=== PATIENT | female | born 1980 | race Caucasian/White ===

== ENCOUNTER 2020-01-04 15:09 | Outpatient (CLI) | payer OTHER, SELFPAY ==
--- NOTE | ~2020-01-04 | MM_ITS ---
EXAMINATION: MM screening aurea BI w wendy HISTORY: Screening TECHNIQUE: Craniocaudal and mediolateral oblique 3-D tomosynthesis images were obtained and synthetic 2-D images were generated. CAD analysis was submitted and interpreted. COMPARISON: No prior mammogram is available for comparison at this institution. BREAST PARENCHYMAL COMPOSITION: There are scattered areas of fibroglandular density. FINDINGS: There is no evidence of suspicious mass, calcification, or architectural distortion to sugg est malignancy in either breast. There has been no suspicious interval change. IMPRESSION: 1. No mammographic evidence of malignancy. 2. Recommend routine screening mammography in one year. BI-RADS Category 1: Negative Reviewed, dictated and finalized at location A.
== END 2020-01-04 15:10 | disposition home or self-care (01) ==
LOC: ANHIMG 15:12
PROVIDERS: PCP Nurse Practitioner Family; Visit Provider Nurse Practitioner Family
DX: Z12.31 Encounter for screening mammogram for malignant neoplasm of breast (principal)
CPT/HCPCS: 77063; 77067

== ENCOUNTER 2021-08-21 15:16 | Outpatient (CLI) | payer OTHER, SELFPAY ==
[2021-08-21 15:49] LABS: Basophils Percent Auto 0.3 % (0.2-1.2); Eosinophils Absolute Auto 0.1 K/mm3 (0-0.3); Eosinophils Percent Auto 1.1 % (0-4.4); Hematocrit 38.5 % (37.0-47.0); Hemoglobin 12.2 g/dL (12.0-15.0); Immature Granulocyte Absolute 0.04 K/mm3 (0.00-0.031); Immature Granulocyte Percent A 0.3 % (0-0.5); Lymphocytes Absolute Auto 1.82 K/mm3 (0.9-3.2); Lymphocytes Percent Auto 15.6 % (18.3-44.2); Mean Corpuscular HGB Conc 31.7 g/dl (32-36); Mean Corpuscular Hemoglobin 27.2 pg (26-34); Mean Corpuscular Volume 85.7 fl (80-100); Mean Platelet Volume 9.7 fl (7.4-10.4); Monocytes Absolute Auto 0.5 K/mm3 (0.1-0.6); Monocytes Percent Auto 4.4 % (2.6-8.5); Neutrophils Absolute Auto 9.1 K/mm3 (1.3-6.7); Neutrophils Percent Auto 78.3 % (45.5-73.1); Platelet Count Result 304 k/mm3 (150-375); Red Blood Count 4.49 M/mm3 (4.2-5.4); White Blood Count 11.7 K/mm3 (4.5-10.0)
[2021-08-21 16:39] LABS: HIV 1/2 Ab P24 Ag Result Negative (Negative)
[2021-08-21 17:03] LABS: Hepatitis B Surface Antigen Negative (Negative); Rubella IgG Antibody 17.9 IU/ML
[2021-08-21 18:02] LABS: Rapid Plasma Reagin Non-Reactive (NonReactive)
[2021-08-23 08:05] LABS: CMV IgG Antibody >10.00 U/mL (<0.60)
[2021-08-29 17:12] LABS: SMA 2.0 RISK VARIANT NOT DETECTED
[2021-08-29 20:13] LABS: CF Result NEGATIVE (NEGATIVE)
[2021-09-01 15:47] LABS: SMA Results Received Yes
== END 2021-08-21 15:17 | disposition home or self-care (01) ==
PROVIDERS: PCP Nurse Practitioner Family; Visit Provider Obstetrics & Gynecology
DX: N94.89 Other specified conditions associated with female genital organs and menstrual cycle (principal)
CPT/HCPCS: 36415; 81220; 81329; 84702; 85025; 86592; 86644; 86703; 86747; 86762; 86787; 86850; 86900; 86901; 87086; 87088; 87340; G0432

== ENCOUNTER 2022-03-24 06:09 | Inpatient (IN) | payer OTHER, SELFPAY ==
[2022-03-24] VITALS (20 sets, daily range): BP systolic 134–166; BP diastolic 72–85; PULSE 56–87; RESP 16–18; TEMP 36.5–36.6; O2SAT 96–100; BMI 36.3
[2022-03-24] MEDS: LACTATED RINGERS 1,000 ML 125 ML IV CONT (06:23)
[2022-03-24] MEDS: OXYTOCIN 30 UNITS/NS 500 ML 30 UNITS/500 ML BAG 999 UNITS IV CONT (06:34)
[2022-03-24 06:49] LABS: Glucose Point of Care 111 mg/dl (65-105)
[2022-03-24 06:52] LABS: Basophils Percent Auto 0.3 % (0.2-1.2); Eosinophils Absolute Auto 0.1 K/mm3 (0-0.3); Eosinophils Percent Auto 0.6 % (0-4.4); Hematocrit 34.2 % (37.0-47.0); Immature Granulocyte Absolute 0.07 K/mm3 (0.00-0.031); Immature Granulocyte Percent A 0.6 % (0-0.5); Lymphocytes Absolute Auto 2.13 K/mm3 (0.9-3.2); Lymphocytes Percent Auto 18.3 % (18.3-44.2); Mean Corpuscular HGB Conc 32.2 g/dl (32-36); Mean Corpuscular Hemoglobin 27.2 pg (26-34); Mean Corpuscular Volume 84.7 fl (80-100); Mean Platelet Volume 9.9 fl (7.4-10.4); Monocytes Absolute Auto 0.7 K/mm3 (0.1-0.6); Monocytes Percent Auto 5.9 % (2.6-8.5); Neutrophils Absolute Auto 8.6 K/mm3 (1.3-6.7); Neutrophils Percent Auto 74.3 % (45.5-73.1); Platelet Count Result 293 k/mm3 (150-375); Red Blood Count 4.04 M/mm3 (4.2-5.4); Red Cell Distribution Width 15.1 % (11.5-14.5); White Blood Count 11.6 K/mm3 (4.5-10.0)
--- NOTE | 2022-03-24 07:08 | PM.IMHP ---
H&P: HPI History of Present Illness Date/Time: 03/24/22 07:08 Chief Complaint: Intrauterine at term Narrative: 41 yo at 38w2d who presents in labor. Pt is complicated by diabetes on insulin and AMA. Review of Systems Cardiovascular: Cardiovascular: Denies chest pain, Denies leg edema, Denies palpitations, Denies dyspnea and Denies dyspnea on exertion Respiratory: Respiratory: Denies cough, Denies dyspnea and Denies dyspnea on exertion Gastrointestinal: Gastrointestinal: Denies abdominal pain, Denies constipation, Denies diarrhea, Denies nausea and Denies vomiting Genitourinary: Genitourinary: Denies hematuria, Denies urinary frequency, Denies dysuria, Denies pelvic pain, Denies urinary incontinence and Denies vaginal discharge Neurologic: Reports system reviewed and no additional complaints, except as documented Psychiatric: Psychiatric: Reports no additional psychiatric complaints Endocrine: Endocrine: Denies palpitations PMFSH Past Medical History Medical History (Updated 03/24/22 @ 07:10 by Raúl Jules MD) Anemia Anxiety Depression History of frequent headaches Suppression of menstruation Family History Family History Mother Cerebrovascular accident Hypertension Diabetes mellitus Social History Social History (Updated 08/09/21 @ 10:05 by DAVE Link) Smoking status: Never smoker Alcohol intake: never Substance use: current Substance use type: marijuana Other substance usage details: daily Additional living arrangements comments: spouse Additional occupation/education comments: stay at home mom Gender identity (if verbalized by the patient): Female Sexual Orientation (if Verbalized by the Patient): Straight or Heterosexual Meds Home Medications and Allergies Home Medications Medication Instructions Recorded Confirmed Type escitalopram oxalate 20 mg tablet 20 mg PO DAILY 08/09/21 03/19/22 History vitamins-iron fumarate 65 1 tablet PO DAILY 08/09/21 03/19/22 History mg iron-folic acid 1 mg tablet aspirin 81 mg tablet,delayed 81 mg PO BID 10/24/21 03/19/22 History release (Adult Low Dose Aspirin) insulin detemir U-100 100 unit/mL 50 unit subcut QHS 02/26/22 03/19/22 History (3 mL) subcutaneous pen buspirone 10 mg tablet 10 mg PO BID #90 tabs 03/19/22 03/19/22 Rx Allergies Allergy/AdvReac Type Severity Reaction Status Date / Time No Known Allergies Allergy Mild Verified 03/19/22 15:34 Vital Signs Vital Signs - 24 hr 03/24/22 06:29 03/24/22 06:45 03/24/22 07:01 Pulse Rate 82 76 Blood Pressure 134/74 139/76 Pulse Oximetry 100 Exam Const: General: no acute distress Eyes: EOM: EOMs intact bilaterally Neck: Neck: supple Thyroid: thyroid normal Chest: Breast/axilla inspection: normal inspection of the breasts Breast/axilla palpation: normal palpation of the breasts, normal palpation of the axillae and no axillary lymphadenopathy Resp: Effort & Inspection: normal respiratory effort Auscultation: clear to auscultation bilaterally Cardio: Rate: regular rate Rhythm: regular rhythm GI: Inspection: non-distended and other (Gravid) GI Palp: Yes Soft to palpation, No Tenderness to palpation present (GI) and No Guarding due to palpation present (GI) Auscultation: normal bowel sounds : Speculum Exam - Vagina: No vaginal bleeding OB/external & speculum: external exam normal; No vaginal bleeding Skin: General skin exam: normal color and no rashes or lesions noted Neuro: Cognition (Neuro): normal cognition Speech: normal speech Extrem: General: normal to inspection Psych: Mental Status: mental status grossly normal Affect: normal affect H&P: Results Labs Labs: Short CBC 03/24/22 Range/Units 06:37 WBC 11.6 H (4.5-10.0) K/mm3 Hgb 11.0 L (12.0-15.0) g/dL Hct 34.2 L (37.0-47.0) % Plt Count 293 (150-375) k
--- NOTE | 2022-03-24 07:10 | P.PCNOB_ITS ---
OB - Delivery Note Procedure Procedure: Upon entering the room, the pt had already had a precipitous delivery with the nurse. The was in the warmer and had good tone, color, and was crying. The placenta had spontaneously delivered. The placenta was inspected and noted to be intact. The perineum was inspected and there was a 1st degree perineal laceration. The laceration was repaired with 3-0 vicryl in the usual fashion. The uterus was firm and good hemostasis was noted. The patient and fetus were stable in the delivery room. Induction method: None Delivery monitor: External FHT Route of delivery: Episiotomy description: None Laceration Description: Perineal - 1st Degree Delivery repair: vicryl Specimen: No Quantitative Blood Loss (ml): 200 Anesthesia type: None Disposition: Floor () Complications: No immediate complications [place] Baby Date of : 03/24/22 Time of : 06:31 Weeks of gestation at delivery: 38 gender: Male Weight (pounds): 6 Weight (ounces): 12 Placenta delivery description: Spontaneous score one minute: 8 score five minutes: 9 AMG Delivery Billing Delivery Delivery: Delivery Charge
--- NOTE | 2022-03-24 07:10 | LDADM ---
This patient, Edith Barroso, was admitted to Labor/Delivery/Recovery 107 on 03/24/22 at 06:09. Plans for labor, pain management and were discussed with patient. Patient/family oriented to hospital policies and general routines including ID bracelet, bed and alarms, visiting hours, pain management, procedures, bathroom and other care routines, personal items, smoking policy, room service/diet and guest tray routines, infant security routines, and visiting hours. Patient/Family are encouraged to report perceived risks to care and to ask questions if they do not understand what they are told or what they should do. See OBIX for further documentation.
[2022-03-24] MEDS: WITCH HAZEL 40 PADS 1 PAD TOPICAL (08:31)
[2022-03-24] MEDS: BENZOCAINE 20% AER SPR (*SP) 56 GM CAN 1 SPRAY TOPICAL (08:31)
[2022-03-24] MEDS: IBUPROFEN 600 MG TABLET PO ×2 (08:47→23:26)
[2022-03-24] MEDS: MULTIVIT/MIN/PREN/FOL AC/IRON TABLET 1 TAB PO (09:40)
[2022-03-24 11:11] LABS: Glucose Point of Care 103 mg/dl (65-105)
[2022-03-24] MEDS: LANOLIN (LANSINOH) 7.5 GM CREAM 1 APPLIC TOPICAL (17:28)
[2022-03-24 19:27] LABS: Glucose Point of Care 99 mg/dl (65-105)
[2022-03-25 04:00] VITALS: BP 123/83; PULSE 64; RESP 18; TEMP 36.6; O2SAT 99
[2022-03-25 06:05] LABS: Hematocrit 31.1 % (37.0-47.0); Hemoglobin 9.8 g/dL (12.0-15.0)
--- NOTE | 2022-03-25 07:16 | PM.OBDSVD ---
DS: Admitting Diagnosis Discharge Date 03/25/22 Admitting Diagnosis intrauterine at term diabetes melitus DS: Discharge Diagnosis Discharge Diagnosis Plan same OB - DS: Summary OB Procedures : None OB Procedures Intrapartum: Spontaneous Vag Delivery OB Procedures: : None Status at Discharge Functional status at discharge: independent ambulation Overall status at discharge: patient is back to baseline Time Spent with Patient Time attestation: Total time spent providing and/or coordinating discharge services: Time spent: Less than 30 minutes Exam Const: General: comfortable and no acute distress Resp: Effort & Inspection: normal respiratory effort Auscultation: clear to auscultation bilaterally Cardio: Rate: regular rate GI: GI Palp: Yes Soft to palpation Auscultation: normal bowel sounds Other: Fundus firm below umbilicus Psych: Appearance: grossly normal Mental Status: mental status grossly normal Affect: normal affect DS: Data Data Completed and Pending Labs on day of discharge: Labs from last 24 hours 03/25/22 03/24/22 03/24/22 04:23 19:24 11:09 Hgb 9.8 L Hct 31.1 L POC Capillary Glucose 99 103 Blood Type Antibody Screen 03/24/22 06:37 Hgb Hct POC Capillary Glucose Blood Type A Positive Antibody Screen Negative Discharge Plan Discharge Attending physician on discharge: Raúl Jules Discharging Clinician: Raúl Jules Patient Disposition: Home, Self-Care Activity: as tolerated and pelvic rest Diet: diabetic Patient Instructions: Antibiotic Form, Vaginal Delivery (DC) Stand Alone Forms: General Discharge Information Follow-up/Referrals: Ar Patel MD [Physician] - Discharge Medications: New ibuprofen 600 mg Tablet 600 mg PO Q6H PRN (Reason: Cramping) Qty: 30 0RF polysaccharide iron complex 150 mg iron Capsule 150 mg PO BIDWM Qty: 60 0RF Continued escitalopram oxalate 20 mg tablet 20 mg PO DAILY vit-iron fum-folic ac 65 mg iron- 1 mg tablet 1 tablet PO DAILY buspirone 10 mg tablet 10 mg PO BID Qty: 90 3RF aspirin [Adult Low Dose Aspirin] 81 mg tablet,delayed release (DR/EC) 81 mg PO BID Discontinued insulin detemir U-100 100 unit/mL (3 mL) insulin pen 48 unit subcut QHS Date of admission: 03/24/22 06:09 Primary Care Provider: AnthonyMisty Admitting Provider: Ar Patel Attending physician on admission: Ar Patel Condition: Stable
[2022-03-25] MEDS: MULTIVIT/MIN/PREN/FOL AC/IRON TABLET 1 TAB PO (08:07)
[2022-03-25] MEDS: POLYSACCHARIDE IRON COMPLEX 150 MG CAPSULE PO (08:07)
[2022-03-25 08:09] VITALS: BP 130/78; PULSE 69; RESP 16; TEMP 36.7; O2SAT 98
--- NOTE | 2022-03-25 11:15 | PC.NURSE ---
Patient viewed the discharge video Mother & Baby Care, The First Two Weeks . Patient was given the opportunity and encouraged to ask questions. Patient verbalized understanding of information shared and has been given the mother/baby guide for home reference.
[2022-03-26 07:28] LABS: Rapid Plasma Reagin Non-Reactive (NonReactive)
== END 2022-03-25 13:36 | disposition home or self-care (01) | DRG 560 ==
LOC: ANHOB2 03-25 07:58 → ANHLDR 03-27 10:47 → ANHOB2 03-27 10:47
PROVIDERS: Obstetrics & Gynecology; Admitting Provider Student in an Organized Health Care Education/Training Program; PCP Nurse Practitioner Family; Visit Provider Student in an Organized Health Care Education/Training Program
DX: O62.3 Precipitate labor (principal); O24.12 Pre-existing type 2 diabetes mellitus, in childbirth; Z37.0 Single live birth; Z3A.38 38 weeks gestation of pregnancy; O69.82X0 Labor and delivery complicated by other cord entanglement, without compression, not applicable or unspecified; O70.0 First degree perineal laceration during delivery
CPT/HCPCS: 36415; 82948; 85014; 85018; 85025; 86592; 86850; 86900; 86901; A9270; J2590; J7120

== ENCOUNTER 2022-04-04 14:25 | Outpatient (CLI) | payer OTHER, SELFPAY ==
[2022-04-04] VITALS (10 sets, daily range): BP systolic 137–167; BP diastolic 67–104; PULSE 50–62; BMI 33.0
[2022-04-04 15:10] LABS: Basophils Percent Auto 0.7 % (0.2-1.2); Eosinophils Absolute Auto 0.1 K/mm3 (0-0.3); Eosinophils Percent Auto 1.8 % (0-4.4); Hematocrit 34.7 % (37.0-47.0); Hemoglobin 11.1 g/dL (12.0-15.0); Immature Granulocyte Absolute 0.02 K/mm3 (0.00-0.031); Immature Granulocyte Percent A 0.3 % (0-0.5); Lymphocytes Absolute Auto 1.22 K/mm3 (0.9-3.2); Lymphocytes Percent Auto 19.9 % (18.3-44.2); Mean Corpuscular Hemoglobin 27.1 pg (26-34); Mean Corpuscular Volume 84.6 fl (80-100); Mean Platelet Volume 9.6 fl (7.4-10.4); Monocytes Absolute Auto 0.3 K/mm3 (0.1-0.6); Monocytes Percent Auto 5.4 % (2.6-8.5); Neutrophils Absolute Auto 4.4 K/mm3 (1.3-6.7); Neutrophils Percent Auto 71.9 % (45.5-73.1); Platelet Count Result 284 k/mm3 (150-375); Red Cell Distribution Width 15.2 % (11.5-14.5); White Blood Count 6.1 K/mm3 (4.5-10.0)
[2022-04-04 15:22] LABS: Alanine Aminotransferase 52 U/L (6-35); Albumin Level 3.9 g/dL (3.5-5.1); Alkaline Phosphatase 116 U/L (38-126); Anion Gap 8 mmol/L (8-16); Aspartate Amino Transferase 45 U/L (14-36); Bilirubin,Total 0.5 mg/dL (0.2-1.3); Blood Urea Nitrogen 17 mg/dL (7-17); Calcium 8.4 mg/dL (8.4-10.2); Carbon Dioxide 23 mmol/L (22-30); Chloride 108 mmol/L (98-107); Estimated Glomerular Filt Rate > 60; Glucose 81 mg/dL (65-110); Potassium 4.2 mmol/L (3.4-5.0); Sodium 139 mmol/L (137-145); Uric Acid 7.3 mg/dL (2.5-7.5)
[2022-04-04] MEDS: ACETAMINOPHEN 500 MG TABLET 1000 MG PO (15:36)
--- NOTE | 2022-04-04 15:40 | PC.NURSE ---
Dr. Jules called stating he has seen BP's and lab results. Discussed last BP of 137/104 that pt was moving; repeat just now is 167/77. Pt has a headache she rates as a 2, no visual disturbance, no epigastric/RUQ pain. No edema and DTR's 2+ and no clonus. MD asking if pt can come back tomorrow to repeat labs. Pt states she can. Orders received for Procardia XL and discharge with pt to return tomorrow for repeat labs.
--- NOTE | 2022-04-04 15:42 | PM.OBTRLD ---
OB - Triage/Final Diagnosis Visit Information Date of evaluation: 04/04/22 Reason for evaluation: other ( hypertension ) Comments/Additional reasons for admission: I have assessed the risk for this patient, Edith Painting Silver Barroso, and determined that she would benefit from observation care. Evaluation Laboratory results: Laboratory Tests 04/04/22 04/04/22 15:00 15:00 WBC 6.1 RBC 4.10 L Hgb 11.1 L Hct 34.7 L MCV 84.6 MCH 27.1 MCHC 32.0 RDW 15.2 H Plt Count 284 MPV 9.6 Immature Gran % (Auto) 0.3 Neut % (Auto) 71.9 Lymph % (Auto) 19.9 [place] % (Auto) 5.4 Eos % (Auto) 1.8 Baso % (Auto) 0.7 Lymph # (Auto) 1.22 [place] # (Auto) 0.3 Eos # (Auto) 0.1 Baso # (Auto) 0.0 Abs Immat Gran (auto) 0.02 Absolute Neuts (auto) 4.4 Absolute Nucleated RBC 0.0 Nucleated RBC % 0.0 Sodium 139 Potassium 4.2 Chloride 108 H Carbon Dioxide 23 Anion Gap 8 BUN 17 Creatinine 0.90 Estim Creat Clear Calc Not Reportable Estimated GFR > 60 Glucose 81 Uric Acid 7.3 Calcium 8.4 Total Bilirubin 0.5 AST 45 H ALT 52 H Alkaline Phosphatase 116 Total Protein 7.0 Albumin 3.9 Vital signs: Vital Signs - 24 hr 04/04/22 14:58 04/04/22 14:58 04/04/22 15:01 Pulse Rate 58 L 58 L 62 Blood Pressure 154/67 H 143/67 H Blood Pressure [Left Arm] 154/67 H 04/04/22 15:16 04/04/22 15:31 04/04/22 15:40 Pulse Rate 51 L 58 L 55 L Blood Pressure 146/87 H 137/104 H 167/77 H Blood Pressure [Left Arm]
[2022-04-04] MEDS: NIFEdipine 30 MG TAB.ER.24 PO (15:50)
== END 2022-04-04 16:52 | disposition home or self-care (01) ==
LOC: ANHOBOP 14:33 → ANHOBPP 14:36
PROVIDERS: PCP Nurse Practitioner Family; Visit Provider Student in an Organized Health Care Education/Training Program
DX: O16.5 Unspecified maternal hypertension, complicating the puerperium (principal)
CPT/HCPCS: 36415; 80053; 84550; 85025; 99199; A9270

== ENCOUNTER 2022-04-05 14:03 | Observation (INO) | payer OTHER, SELFPAY ==
[2022-04-05] VITALS (54 sets, daily range): BP systolic 135–199; BP diastolic 66–115; PULSE 55–85; RESP 16–18; TEMP 36.4–36.7; O2SAT 93–100
[2022-04-05 14:49] LABS: Basophils Absolute Auto 0.1 K/mm3 (0.0-0.1); Basophils Percent Auto 1.1 % (0.2-1.2); Eosinophils Absolute Auto 0.1 K/mm3 (0-0.3); Eosinophils Percent Auto 2.4 % (0-4.4); Hematocrit 38.2 % (37.0-47.0); Hemoglobin 12.1 g/dL (12.0-15.0); Immature Granulocyte Absolute 0.02 K/mm3 (0.00-0.031); Immature Granulocyte Percent A 0.4 % (0-0.5); Lymphocytes Absolute Auto 1.25 K/mm3 (0.9-3.2); Lymphocytes Percent Auto 22.7 % (18.3-44.2); Mean Corpuscular HGB Conc 31.7 g/dl (32-36); Mean Corpuscular Hemoglobin 26.8 pg (26-34); Mean Corpuscular Volume 84.5 fl (80-100); Mean Platelet Volume 9.4 fl (7.4-10.4); Monocytes Absolute Auto 0.3 K/mm3 (0.1-0.6); Monocytes Percent Auto 5.6 % (2.6-8.5); Neutrophils Absolute Auto 3.7 K/mm3 (1.3-6.7); Neutrophils Percent Auto 67.8 % (45.5-73.1); Platelet Count Result 299 k/mm3 (150-375); Red Blood Count 4.52 M/mm3 (4.2-5.4); White Blood Count 5.5 K/mm3 (4.5-10.0)
[2022-04-05 15:46] LABS: Alanine Aminotransferase 58 U/L (6-35); Alkaline Phosphatase 120 U/L (38-126); Anion Gap 7 mmol/L (8-16); Aspartate Amino Transferase 44 U/L (14-36); Bilirubin,Total 0.4 mg/dL (0.2-1.3); Blood Urea Nitrogen 13 mg/dL (7-17); Calcium 8.7 mg/dL (8.4-10.2); Carbon Dioxide 22 mmol/L (22-30); Chloride 109 mmol/L (98-107); Estimated Glomerular Filt Rate > 60; Glucose 87 mg/dL (65-110); Potassium 3.8 mmol/L (3.4-5.0); Sodium 138 mmol/L (137-145); Uric Acid 6.2 mg/dL (2.5-7.5)
--- NOTE | 2022-04-05 16:02 | PC.NURSE ---
Called Dr. Jules and OMAR
--- NOTE | 2022-04-05 16:18 | PC.NURSE ---
Report given to Dr. Jules via phone. He is on the way to hospital to assess patient.
--- NOTE | 2022-04-05 16:39 | PC.NURSE ---
Jorge A at bedside
--- NOTE | 2022-04-05 16:50 | PC.NURSE ---
Dr. Jules gave orders to start a 4mg magnesium bolus then do a 2 mg magnesium infusion. Orders for VS Q4HR and PI labs in the morning.
--- NOTE | 2022-04-05 17:06 | PM.IMHP ---
H&P: HPI History of Present Illness Date/Time: 04/05/22 17:06 Chief Complaint: elevated blood pressure Narrative: 41 yo who presents 12 days PP from . Her course has been complicated by elevated BP. Pt presented yesterday with complaint of headache and elevated BP at home. Pt was found to have mild range BP. Her liver enzymes were elevated. Pt was started on procardia and brought back for repeat labs today. Pt continues to complain of BLAKE. She reports severe range BP at home. Her liver enzymes remained elevated. Pt was noted to have severe range BP on evaluation today. Pt reports increased swelling and severe range BP after her last delivery as well. Review of Systems Review of Systems: All systems reviewed & are unremarkable except as noted in HPI and below Cardiovascular: Cardiovascular: Denies chest pain, Denies leg edema, Denies palpitations, Denies dyspnea and Denies dyspnea on exertion Respiratory: Respiratory: Denies cough, Denies dyspnea and Denies dyspnea on exertion Gastrointestinal: Gastrointestinal: Denies abdominal pain, Denies constipation, Denies diarrhea, Denies nausea and Denies vomiting Genitourinary: Genitourinary: Denies hematuria, Denies urinary frequency, Denies dysuria, Denies pelvic pain, Denies urinary incontinence and Denies vaginal discharge Neurologic: Reports system reviewed and no additional complaints, except as documented Psychiatric: Psychiatric: Reports no additional psychiatric complaints Endocrine: Endocrine: Denies palpitations PMFSH Past Medical History Medical History (Updated 04/05/22 @ 17:11 by Raúl Jules MD) Anemia Anxiety Depression History of frequent headaches Suppression of menstruation Family History Family History Mother Cerebrovascular accident Hypertension Diabetes mellitus Social History Social History (Updated 08/09/21 @ 10:05 by DAVE Link) Smoking status: Never smoker Second hand tobacco smoke exposure: No Alcohol intake: never Substance use: former Substance use type: marijuana Other substance usage details: daily Last use: 2-3 months ago Has the Lack of Transportation Kept You From Medical Appointments or From Getting Medications?: No Within the Past 12 Months, Were You Worried Whether Your Food Would Run Out Before You Got Money to Buy More?: Never True What is Your Housing Situation Today?: I Have Housing Are You Worried That in the Next 2 Months, You May Not Have Your Own Housing to Live In?: No Do You Have Trouble Paying Your Heating Or Electricity Bill?: No Do You Have Trouble Paying For Medicines?: No Are You Currently Unemployed and Looking for Work?: No Highest Level of Education Completed: Grade School Do You Have Trouble With Childcare or the Care of a Family Member?: No Additional living arrangements comments: spouse Additional occupation/education comments: stay at home mom Gender identity (if verbalized by the patient): Female Sexual Orientation (if Verbalized by the Patient): Straight or Heterosexual Spiritual care concerns: No Meds Home Medications and Allergies Home Medications Medication Instructions Recorded Confirmed Type escitalopram oxalate 20 mg tablet 20 mg PO DAILY 08/09/21 04/05/22 History vitamins-iron fumarate 65 1 tablet PO DAILY 08/09/21 04/05/22 History mg iron-folic acid 1 mg tablet aspirin 81 mg tablet,delayed 81 mg PO BID 10/24/21 04/05/22 History release (Adult Low Dose Aspirin) buspirone 10 mg tablet 10 mg PO BID #90 tabs 03/19/22 04/05/22 Rx ibuprofen 600 mg tablet 600 mg PO Q6H PRN Cramping #30 tabs 03/25/22 04/05/22 Rx polysaccharide iron complex 150 mg 150 mg PO BIDWM #60 caps 03/25/22 04/05/22 Rx iron capsule metformin 500 mg tablet,extended 500 mg PO HS 04/04/22 04/05/22 History release 24 hr nifedipine 30 mg tablet,extended 30 mg PO DAILY #3
--- NOTE | 2022-04-05 17:25 | OBADM ---
This patient, Edith Barroso, admitted to the OB room [facility] for observation. Patient/family oriented to hospital policies and general routines including ID bracelet, bed and alarms, visiting hours, pain management, procedures, bathroom and other care routines, personal items, smoking policy, room service/diet, and visiting hours. Patient/Family are encouraged to report perceived risks to care and to ask questions if they do not understand what they are told or what they should do.
[2022-04-05] MEDS: MAGNESIUM SULF 4 GM/WATER100ML 4 GM/100 ML BAG IVPB (17:28)
[2022-04-05] MEDS: LACTATED RINGERS 1,000 ML 75 ML IV CONT (17:28)
--- NOTE | 2022-04-05 17:56 | PC.NURSE ---
Dr. Jules called. Orders to do Intake and outtake as well.
[2022-04-05] MEDS: MAGNESIUM SULF 20GM/WATER500ML 500 ML 50 MG IV CONT (17:59)
--- NOTE | 2022-04-05 18:31 | PC.NURSE ---
report given to JADON Lu
[2022-04-05] MEDS: NIFEdipine 30 MG TAB.ER.24 PO (21:00)
[2022-04-06] VITALS (120 sets, daily range): BP systolic 125–137; BP diastolic 64–83; PULSE 54–109; RESP 15–16; TEMP 36.4–36.7; O2SAT 90–100; BMI 33.2
[2022-04-06] MEDS: MAGNESIUM SULF 20GM/WATER500ML 500 ML 50 MG IV CONT (04:13)
[2022-04-06] MEDS: ACETAMINOPHEN 325 MG TABLET 650 MG PO ×2 (04:23→17:14)
[2022-04-06 05:48] LABS: Hematocrit 43.3 % (37.0-47.0); Hemoglobin 13.8 g/dL (12.0-15.0); Mean Corpuscular HGB Conc 31.9 g/dl (32-36); Mean Corpuscular Hemoglobin 26.7 pg (26-34); Mean Corpuscular Volume 83.9 fl (80-100); Mean Platelet Volume 9.1 fl (7.4-10.4); Platelet Count Result 359 k/mm3 (150-375); Red Blood Count 5.16 M/mm3 (4.2-5.4); White Blood Count 6.9 K/mm3 (4.5-10.0)
[2022-04-06 05:59] LABS: Alanine Aminotransferase 70 U/L (6-35); Albumin Level 4.5 g/dL (3.5-5.1); Alkaline Phosphatase 140 U/L (38-126); Anion Gap 16 mmol/L (8-16); Aspartate Amino Transferase 52 U/L (14-36); Bilirubin,Total 0.4 mg/dL (0.2-1.3); Blood Urea Nitrogen 10 mg/dL (7-17); Calcium 6.7 mg/dL (8.4-10.2); Carbon Dioxide 26 mmol/L (22-30); Chloride 99 mmol/L (98-107); Estimated CRCL calculation 82 ml/min; Estimated Glomerular Filt Rate > 60; Glucose 112 mg/dL (65-110); Potassium 3.4 mmol/L (3.4-5.0); Sodium 141 mmol/L (137-145); Uric Acid 6.2 mg/dL (2.5-7.5)
[2022-04-06] MEDS: LACTATED RINGERS 1,000 ML 75 ML IV CONT (07:02)
--- NOTE | 2022-04-06 07:28 | PC.NURSE ---
Dr. Jules at bedside discussing plan of care with patient. Magnesium drip to be discontinued after current bag is finished. Monitor patient throughout the day for PP preeclampsia sx.
[2022-04-06] MEDS: NIFEdipine 30 MG TAB.ER.24 PO ×2 (08:59→16:48)
--- NOTE | 2022-04-06 09:05 | PC.NURSE ---
Magnesium sulfate and LR IV drips stopped.
--- NOTE | 2022-04-06 10:02 | PC.NURSE ---
Patient is able to ambulate to restroom independently.
--- NOTE | 2022-04-06 10:45 | PM.DS ---
DS: Admitting Diagnosis Discharge Date 04/06/22 Admitting Diagnosis preeclampsia DS: Discharge Diagnosis Discharge Diagnosis (1) Preeclampsia in period: Code(s): O14.95 - Unspecified pre-eclampsia, complicating the puerperium Status: Acute DS: Summary Hospital Course Reason for hospitalization: preeclampsia Hospital Course: 41 yo who presented with persistently elevated BP and headaches. Pt was started on antihypertensive 11 days PP from . Pt was noted to have elevated liver enzymes on labwork. Pt presented for follow up labs and was noted to have severe range BP despite starting antihypertensives. Pt was admitted for magnesium infusion and BP monitoring. Pt's antihypertensive dosing was increased. Pt received magnesium overnight. pt states her BLAKE has resolved. BP remained normotensive overnight after magnesium and increasing antihypertensives. Pt is asymptomatic on hospital day #1. Status at Discharge Functional status at discharge: independent ambulation Overall status at discharge: patient is progressing back to baseline Time Spent with Patient Time attestation: Total time spent providing and/or coordinating discharge services: Time spent: Less than 30 minutes Exam Const: General: cooperative, comfortable and no acute distress Eyes: General: appearance normal, both eyes and all related structures Resp: Effort & Inspection: normal respiratory effort and able to speak in complete sentences Auscultation: clear to auscultation bilaterally Cardio: Rate: regular rate Rhythm: regular rhythm GI: Inspection: normal to inspection GI Palp: No abdominal tenderness and Yes Soft to palpation DS: Data Data Completed and Pending Labs on day of discharge: Labs from last 24 hours 04/06/22 04/06/22 04/05/22 05:29 05:29 14:40 WBC 6.9 RBC 5.16 Hgb 13.8 Hct 43.3 MCV 83.9 MCH 26.7 MCHC 31.9 L RDW 15.0 H Plt Count 359 MPV 9.1 Immature Gran % (Auto) Neut % (Auto) Lymph % (Auto) [place] % (Auto) Eos % (Auto) Baso % (Auto) Lymph # (Auto) [place] # (Auto) Eos # (Auto) Baso # (Auto) Abs Immat Gran (auto) Absolute Neuts (auto) Absolute Nucleated RBC Nucleated RBC % Sodium 141 138 Potassium 3.4 3.8 Chloride 99 109 H Carbon Dioxide 26 22 Anion Gap 16 7 L BUN 10 13 Creatinine 0.80 0.80 Estim Creat Clear Calc 82 Not Reportable Estimated GFR > 60 > 60 Glucose 112 H 87 Uric Acid 6.2 6.2 Calcium 6.7 L 8.7 Total Bilirubin 0.4 0.4 AST 52 H 44 H ALT 70 H 58 H Alkaline Phosphatase 140 H 120 Total Protein 8.0 7.0 Albumin 4.5 4.0 04/05/22 14:40 WBC 5.5 RBC 4.52 Hgb 12.1 Hct 38.2 MCV 84.5 MCH 26.8 MCHC 31.7 L RDW 15.0 H Plt Count 299 MPV 9.4 Immature Gran % (Auto) 0.4 Neut % (Auto) 67.8 Lymph % (Auto) 22.7 [place] % (Auto) 5.6 Eos % (Auto) 2.4 Baso % (Auto) 1.1 Lymph # (Auto) 1.25 [place] # (Auto) 0.3 Eos # (Auto) 0.1 Baso # (Auto) 0.1 Abs Immat Gran (auto) 0.02 Absolute Neuts (auto) 3.7 Absolute Nucleated RBC 0.0 Nucleated RBC % 0.0 Sodium Potassium Chloride Carbon Dioxide Anion Gap BUN Creatinine Estim Creat Clear Calc Estimated GFR Glucose Uric Acid Calcium Total Bilirubin AST ALT Alkaline Phosphatase Total Protein Albumin Discharge Plan Discharge Attending physician on discharge: Raúl Jules Discharging Clinician: Raúl Jules Patient Disposition: Home, Self-Care Activity: as tolerated and pelvic rest Diet: regular Patient Instructions: Antibiotic Form, Preeclampsia and Eclampsia After Delivery (GEN) Stand Alone Forms: General Discharge Information Follow-up/Referrals: Raúl Jules MD [Physician] - 1 Week Discharge Medications: New nifedipine [Procardia XL] 30 mg Tablet Extended Release 24hr 30 mg PO BID Qty: 60 0RF Continue
--- NOTE | 2022-04-06 11:43 | PC.NURSE ---
Spoke with Dr. Jules regarding patient's plan of care. Current plan is to discharge patient at 1700 so long as patient does not have any new complaints.
== END 2022-04-06 17:27 | disposition home or self-care (01) ==
LOC: ANHOBPP 16:53 → ANHLDR 19:48
PROVIDERS: Admitting Provider Student in an Organized Health Care Education/Training Program; PCP Nurse Practitioner Family; Visit Provider Student in an Organized Health Care Education/Training Program
DX: O14.15 Severe pre-eclampsia, complicating the puerperium (principal); D64.9 Anemia, unspecified; F41.9 Anxiety disorder, unspecified; F32.A Depression, unspecified; Z79.82 Long term (current) use of aspirin; Z79.1 Long term (current) use of non-steroidal anti-inflammatories (NSAID); Z79.84 Long term (current) use of oral hypoglycemic drugs; Z79.899 Other long term (current) drug therapy
CPT/HCPCS: 36415; 80053; 84550; 85025; 85027; 96365; 96366; A9270; G0378; G0379; J3475; J7120

== ENCOUNTER 2025-04-19 11:10 | Outpatient (CLI) | payer OTHER, SELFPAY ==
--- NOTE | ~2025-04-19 | XR_ITS ---
Examination: XR thoracic spine 3V Clinical History: chronic low back pain wo sciatica Comparison: None Technique: 2 views thoracic spine Findings: No fracture. No listhesis. Minimal degenerative changes. Visualized heart and lungs unremarkable. IMPRESSION: 1. No acute abnormality. Reviewed, dictated and finalized at location R. [employer] ADMINISTRATION OFFICER IMPRESSION: 1. No acute abnormality.
--- NOTE | ~2025-04-19 | XR_ITS ---
Lumbar spine series Indication: Chronic low back pain Comparison: None Technique: 3 views lumbar spine Findings: 5 nonrib-bearing lumbar-type vertebral bodies. No acute fracture. No listhesis. Vertebral bodies normal height. Disc spaces maintained. Minimal degenerative changes. SI joints congruent. Sacrum intact. IMPRESSION: 1. No acute findings. Reviewed, dictated and finalized at location R. [employer] INCOME IMPRESSION: 1. No acute findings.
== END 2025-04-19 11:11 | disposition home or self-care (01) ==
LOC: ANHIMG 11:14
PROVIDERS: PCP Nurse Practitioner Family; Visit Provider Nurse Practitioner Family
DX: M54.50 Low back pain, unspecified (principal); G89.29 Other chronic pain
CPT/HCPCS: 72072; 72100